=== PATIENT | male | born 1985 | race Caucasian/White ===

== ENCOUNTER 2016-05-21 23:45 | Emergency (ER) | payer OTHER ==
[~2016-05-21 23:45] MED LIST: DILAUDID8 MG PO; LITHIUM CARBON450 MG PO; METHADONE HCL10 MG PO; MS CONTIN30 MG PO; WELLBUTRIN SR100 MG PO; XANAX0.5 MG PO; ZOLOFT50 MG PO
--- NOTE | 2016-05-22 02:38 | ED ORDER SUMMARY ---
..... Patient: KENISHA VILLARREAL OrderSheet [facility] VisitID: [id number] [place] [address] 30y, M Registration Date/Time: 05/21/2016 ORDER SHEET Weight: 81.6 kg (stated) Allergies: No Known Drug Allergy GENERAL ORDERS: GC/Chlamydia, Urine (Urine, Clean Catch) (urine) Urgent (00:08 05/22/2016 Janet Gordillo) (Ack 0:09 HSoule) (0:33 AMcQuoid ER Tech1) UA-Culture if indicated Urgent (00:08 05/22/2016 Janet Gordillo) (Ack 0:09 HSoule) (0:33 AMcQuoid ER Tech1) US Scrotum/Testicular Urgent (02:08 05/22/2016 Janet Gordillo) (Ack 2:09 AMcQuoid ER Tech1) (2:39 HSoule) MEDICATION ORDERS: Ciprofloxacin PO 500 mg (NOW) (02:08 05/22/2016 Janet Gordillo) (Ack 2:13 HSoule) (2:18 HSoule) IV FLUIDS: ORDER SHEET NOTES: [Electronically signed by Loraine De La Cruz (03:32 05/22/2016)] [Electronically signed by Jose Manuel Dr. (04:35 05/24/2016)] [Electronically locked/signed by Loraine De La Cruz (03:32 05/22/2016)]
--- NOTE | 2016-05-22 02:38 | ED NURSING NOTES ---
Clinical Report - Nurses [facility] [address] [place] [address] 05/21/2016 23:48 Patient: KENISHA VILLARREAL TRIAGE Triage time 23:59 May 21 2016. Acuity: LEVEL 3. Chief Complaint: PAIN WITH URINATION and TESTICULAR PAIN. 00:03 05/22/16. SEPSIS SCREEN: Sepsis Screen: negative. Negative (no infection suspected/documented). --00:03 Loraine De La Cruz 23:59 05/21/16. BP: 159/104. HR: 81. RR: 20. O2 saturation: 96% on room air. Temp: 97.5 F (oral). Pain level now: 09/06. --00:03 Loraine De La Cruz. Weight: 81.6 kg stated. Height/Length: 74 inches Per Patient. BMI: 23.1. --00:00 Loraine De La Cruz. Medications None. --00:02 Loraine De La Cruz. Allergies No Known Drug Allergy. --00:02 Loraine De La Cruz. Medication/allergy information source: the patient. --00:03 Loraine De La Cruz. History Arrived by private vehicle. Historian: patient. Accompanied by friend. Onset. (1 months ago). ( Patient reports that he has been having testicle pain as well as maintaining an erection. Patient reports some new sexual partners. Patient also reports some pain with urination.). Treatment ELEMENTARY PRINCIPAL: None. PAST MEDICAL HX: Immunizations: status is unknown. SOCIAL HX: Light tobacco smoker (cigarette)- less than 1/2 a pack per day. Occasional alcohol use. History of IV drug use: heroin, methamphetamines. Recently used drugs today. No infectious disease exposure. ABUSE ASSESSMENT: No report of abuse. FALL RISK ASSESSMENT: Fall risk assessment completed. No fall risk identified. NUTRITIONAL RISK ASSESSMENT: The nutritional risk assessment revealed no deficiencies. FUNCTIONAL ASSESSMENT: Functional assessment: no impairments noted. LEARNING NEEDS ASSESSMENT: The learning needs assessment revealed no barriers. SKIN INTEGRITY ASSESSMENT: Skin integrity risk assessment completed. No skin integrity risk identified. --00:03 Loraine De La Cruz. PROBLEMS: Drug Poisoning. Suicide Attempt. Seizure. Abdominal Pain. Constipation. Nephrolithiasis. Chronic Back Pain. Depression. Muscle Strain, Upper Extremity. Immunizations. Fall. Abrasion(s). Contusion. Tetanus Status. Spontaneous pneumothorax. Anxiety Reaction. --00:03 Loraine De La Cruz. ADDITIONAL SURGERIES: Chest tube. --00:03 Loraine De La Cruz Facial reconstruction . --00:03 Loraine De La Cruz. Interventions ID band on patient. To treatment room. --00:03 Loraine De La Cruz. PHYSICAL ASSESSMENT 00:04 05/22/16. Ambulatory to room. GENERAL / NEURO / PSYCH: Alert. Oriented X 4. Appears in no acute distress. HEENT: Mucous membranes are pink. RESPIRATORY: Respirations not labored. CVS: Normal heart rate and rhythm. GI / : Abdomen soft and nontender. Right testicular tenderness. SKIN: Skin is warm and dry. --00:05 Loraine De La Cruz. NURSING PROGRESS NOTES 00:05 05/22/16. Pulse oximeter and NIBP monitor placed on patient. Patient gowned. Reassurance given to the patient. Two patient identifiers checked. Call light placed in reach. Side rails up x 1. Bed placed in lowest position. Brakes of bed on. Patient ready for evaluation- chart flagged and ED physician notified. --00:05 Loraine De La Cruz ( Patient made aware of the need for urine sample). --00:16 Loraine De La Crzu Patient ID band checked for patient name and birthdate: patient confirmed. Instructions provided to collect clean catch urine and patient verbalized understanding urine collected with return of yellow-colored clear urine; sample sent to lab for urinalysis and culture. Specimen labeled in the presence of the patient. --00:29 Loraine De La Cruz 01:58 05/22/16. BP: 127/75. HR: 87. RR: 20. O2 saturation: 98% on room air. --01:58 Loraine De La Cruz 02:18 05/22/2016 Ciprofloxacin (Ciprofloxacin) PO Tablets 500 mg given. Allergies verified and confirmed 5 rights. --02:18 Loraine De La Cruz. DISPOSITION / DISCHARGE 02:48 05/22/16. Condition at departure: stable. No learning barriers present. Discharge instructions provided and reviewed with the patient. Reviewed medication(s) side effects, precautions, dosing and course information. Prescription(s) given to the patient. Reviewed need for increased fluid intake. Patient verbalized understanding. Written instructions provided in [place]. ( Follow up with Urology in one week. Return if symptoms worsen. Take antibiotics as directed and for duration of prescribed course. Patient had no questions at this time and verbalized understanding of discharge instructions.). The patient was discharged by the physician. He was discharged home and accompanied by real estate leasing agent. He left the Emergency Department ambulatory and via private vehicle. Patient driving. --02:48 Loraine De La Cruz 02:44 05/22/16. BP: 127/70. HR: 89. RR: 20. O2 saturation: 98% on room air. Temp: 97.7 F (oral). Pain level now: 09/06. --02:48 Loraine De La Cruz. Locked/Released at 05/22/2016 3:32 by Loraine De La Cruz,
--- NOTE | 2016-05-22 02:38 | ED CLINICAL REPORT ---
Clinical Report - Physicians/Mid Levels [facility] [address] [place] [address] 05/21/2016 23:48 Patient: KENISHA VILLARREAL Time Seen: 0008; patient care assumed. Arrived- By private vehicle. Historian- patient. HISTORY OF PRESENT ILLNESS Chief Complaint: DYSURIA and RIGHT TESTICULAR PAIN. This started past several days and is still present (staying the same). The problem is described as moderate. It was gradual in onset and has been waxing/waning but is not gone now. No penile discharge or genital lesion. He has had testicular pain. The patient has not had an exposure to a sexually transmitted disease. Similar symptoms previously: None. Recent medical care: Not recently seen/assessed. REVIEW OF SYSTEMS No fever or chills. All systems otherwise negative, except as recorded above. PAST HISTORY See nurses notes. SOCIAL HISTORY Smoker- current status unknown. Alcohol use. History of drug use: methamphetamines. No recent travel. Is a local resident. ADDITIONAL NOTES The nursing notes have been reviewed. PHYSICAL EXAM Vital Signs: 05/21/2016 23:59 BP: 159/104. HR: 81. RR: 20. O2 saturation: 96%. Temp: 97.5 F. Pain level now: 7/10. Oxygen saturation normal. Appearance: Alert. Oriented X3. No acute distress. ENT: Normal external inspection. Pharynx normal. Neck: Neck supple. CVS: Heart sounds normal. Respiratory: No respiratory distress. Breath sounds normal. Abdomen: Soft and nontender. Bowel sounds normal. : (No [place] male genitalia. Circumcised. No discharge. The left testicle is not present or palpated even in the inguinal canal. Right testicle is normal in contour and size. No epididymal tenderness. No scrotal erythema or edema noted. No signs of foreign's gangrene. No bony other maladies. No hernia. No lymphadenopathy. No discharge or lesions). Skin: Skin warm and dry. No rash. Normal skin turgor. Extremities: Extremities exhibit normal ROM. No lower extremity edema. LABS, X-RAYS, AND EKG Scrotal Sonogram: Testis abnormal. Blood flow to right testis is normal. Blood flow to left testis is absent (small calcifications). Small right hydrocele. No mass. Indication for study: pain. The exam was performed by a vtc technician. The study was independently viewed by me and interpreted by the radiologist. The study was discussed with the radiologist (pacs). Laboratory Tests: UA-Culture if indicated: (ELEONORA: 05/22/2016 00:30) ( [facility] 05/22/2016 01:22) Final results Test Result Flag Units (Reference) URINE COLOR YELLOW URINE APPEARANCE SLIGHTLY HAZY URINE GLUCOSE NEGATIVE (NEGATIVE) URINE BILIRUBIN NEGATIVE (NEGATIVE) URINE KETONE NEGATIVE (NEGATIVE) URINE SPECIFIC GRAVITY 1.025 (1.010-1.030) URINE PH 6.5 (5.0-8.0) URINE PROTEIN NEGATIVE (NEGATIVE) URINE UROBILINOGEN 0.2 EU/dL (0.2-1.0) URINE NITRITE NEGATIVE (NEGATIVE) URINE BLOOD 2+ (NEGATIVE) URINE LEUK ESTERASE POSITIVE (NEGATIVE) URINE RBC 10-25 rbc/hpf (0-1) URINE WBC 10-15 wbc/hpf (0-1) URINE EPITHELIAL CELLS RARE EPI/hpf (0-5) URINE BACTERIA NONE SEEN (NONE SEEN) URINE COMMENT CULTURE INDICATED URINE CULTURES ARE SET-UP BASED ON THE FOLLOWING CRITERIA:POSITIVE NITRITEPOSITIVE LEUKOCYTE ESTERASEGREATER THAN 10 WHITE BLOOD CELLSMODERATE (2+) OR GREATER BACTERIA Culture, Urine: (ELEONORA: 05/22/2016 00:30) ( [facility] 05/23/2016 10:11) IP Test Result Flag Units (Reference) CULTURE, URINE DATE: 05/23/16 PRELIM REPORT: PRELIMINARY REPORT #1 VERY EARLY GROWTH: VERY EARLY GROWTH: CULTURE TOO YOUNG FOR WORKUP-REINCUBATED . PROGRESS AND PROCEDURES Course of Care: the patient is a pleasant 30-year-old male presenting for evaluation of dysuria. At this time differential diagnosis includes gonorrhea/chlamydial infection versus urinary tract infection. Also be considered epididymitis and orchitis secondary to patient's concern for testicular pain. Patient will be evaluated with ultrasound as well as urinalysis. Patient is agreeable to treatment plan. Patient's workup was alert we'll for urinary tract infection. Ultrasound demonstrates small calcifications noted in the patient's decibels. Because this, patient was at slightly increased risk for having testicular cancer in the future. Patient was informed of the findings here in the emergency departmentincluding ultrasound and urinalysis. At about accident provided. The patient is agreeable to the treatment plan. Discussed with patient his workup here in the emergency department as well as diagnosis, home care and follow-up and return precautions. All questions have been answered. The patient expressed understanding of these instructions and was agreeable to them. Disposition: Discharged. Condition: good. CLINICAL IMPRESSION Acute urinary tract infection. Right epididymitis (acute). INSTRUCTIONS Warnings: GENERAL WARNINGS: Return or contact your physician immediately if your condition worsens or changes unexpectedly, if not improving as expected, or if other problems arise. Specifically return if pain, vomiting, bleeding, breathing difficulty or fever. Your Current Medications: CONTINUE TAKING THE FOLLOWING MEDICATIONS: None*. Prescription Medications: Cipro 500 mg: take 1 tab orally every 12 hours for 10 days. No refills. Substitution is permissible. OTC Medications: Motrin (available over the counter): take according to label instructions. Follow-up: Return to the emergency department as needed. Follow up with your doctor in three days. Reason for referral: recheck today's concerns. Summary of care provided to patient via paper. Screening today revealed the patient's blood pressure to be in the normal range. The patient should follow up with a primary care provider for blood pressure management. Understanding of the discharge instructions verbalized by patient. Follow-up with: Librado Alex MD, Urology, , [address] [facility], [id number] Follow up in one week. Reason for referral: recheck today's concerns. Summary of care provided to patient via paper. (Electronically signed by Jose Manuel Dr. 05/24/2016 4:35)
--- NOTE | 2016-05-22 02:38 | ED NURSING NOTES ---
Clinical Report - Nurses [facility] [address] [place] [address] 05/21/2016 23:48 Patient: KENISHA VILLARREAL TRIAGE Triage time 23:59 May 21 2016. Acuity: LEVEL 3. Chief Complaint: PAIN WITH URINATION and TESTICULAR PAIN. 00:03 05/22/16. SEPSIS SCREEN: Sepsis Screen: negative. Negative (no infection suspected/documented). --00:03 Loraine De La Cruz 23:59 05/21/16. BP: 159/104. HR: 81. RR: 20. O2 saturation: 96% on room air. Temp: 97.5 F (oral). Pain level now: 09/06. --00:03 Loraine De La Cruz. Weight: 81.6 kg stated. Height/Length: 74 inches Per Patient. BMI: 23.1. --00:00 Loraine De La Cruz. Medications None. --00:02 Loraine De La Cruz. Allergies No Known Drug Allergy. --00:02 Loraine De La Cruz. Medication/allergy information source: the patient. --00:03 Loraine De La Cruz. History Arrived by private vehicle. Historian: patient. Accompanied by friend. Onset. (1 months ago). ( Patient reports that he has been having testicle pain as well as maintaining an erection. Patient reports some new sexual partners. Patient also reports some pain with urination.). Treatment MIMEOGRAPHER: None. PAST MEDICAL HX: Immunizations: status is unknown. SOCIAL HX: Light tobacco smoker (cigarette)- less than 1/2 a pack per day. Occasional alcohol use. History of IV drug use: heroin, methamphetamines. Recently used drugs today. No infectious disease exposure. ABUSE ASSESSMENT: No report of abuse. FALL RISK ASSESSMENT: Fall risk assessment completed. No fall risk identified. NUTRITIONAL RISK ASSESSMENT: The nutritional risk assessment revealed no deficiencies. FUNCTIONAL ASSESSMENT: Functional assessment: no impairments noted. LEARNING NEEDS ASSESSMENT: The learning needs assessment revealed no barriers. SKIN INTEGRITY ASSESSMENT: Skin integrity risk assessment completed. No skin integrity risk identified. --00:03 Loraine De La Cruz. PROBLEMS: Drug Poisoning. Suicide Attempt. Seizure. Abdominal Pain. Constipation. Nephrolithiasis. Chronic Back Pain. Depression. Muscle Strain, Upper Extremity. Immunizations. Fall. Abrasion(s). Contusion. Tetanus Status. Spontaneous pneumothorax. Anxiety Reaction. --00:03 Loraine De La Cruz. ADDITIONAL SURGERIES: Chest tube. --00:03 Loraine De La Cruz Facial reconstruction . --00:03 Loraine De La Cruz. Interventions ID band on patient. To treatment room. --00:03 Loraine De La Cruz. PHYSICAL ASSESSMENT 00:04 05/22/16. Ambulatory to room. GENERAL / NEURO / PSYCH: Alert. Oriented X 4. Appears in no acute distress. HEENT: Mucous membranes are pink. RESPIRATORY: Respirations not labored. CVS: Normal heart rate and rhythm. GI / : Abdomen soft and nontender. Right testicular tenderness. SKIN: Skin is warm and dry. --00:05 Loraine De La Cruz. NURSING PROGRESS NOTES 00:05 05/22/16. Pulse oximeter and NIBP monitor placed on patient. Patient gowned. Reassurance given to the patient. Two patient identifiers checked. Call light placed in reach. Side rails up x 1. Bed placed in lowest position. Brakes of bed on. Patient ready for evaluation- chart flagged and ED physician notified. --00:05 Loraine De La Cruz ( Patient made aware of the need for urine sample). --00:16 Loraine De La Cruz Patient ID band checked for patient name and birthdate: patient confirmed. Instructions provided to collect clean catch urine and patient verbalized understanding urine collected with return of yellow-colored clear urine; sample sent to lab for urinalysis and culture. Specimen labeled in the presence of the patient. --00:29 Loraine De La Cruz 01:58 05/22/16. BP: 127/75. HR: 87. RR: 20. O2 saturation: 98% on room air. --01:58 Loraine De La Cruz 02:18 05/22/2016 Ciprofloxacin (Ciprofloxacin) PO Tablets 500 mg given. Allergies verified and confirmed 5 rights. --02:18 Loraine De La Cruz. DISPOSITION / DISCHARGE 02:48 05/22/16. Condition at departure: stable. No learning barriers present. Discharge instructions provided and reviewed with the patient. Reviewed medication(s) side effects, precautions, dosing and course information. Prescription(s) given to the patient. Reviewed need for increased fluid intake. Patient verbalized understanding. Written instructions provided in Greek. ( Follow up with Urology in one week. Return if symptoms worsen. Take antibiotics as directed and for duration of prescribed course. Patient had no questions at this time and verbalized understanding of discharge instructions.). The patient was discharged by the physician. He was discharged home and accompanied by customer service advisor. He left the Emergency Department ambulatory and via private vehicle. Patient driving. --02:48 Loraine De La Cruz 02:44 05/22/16. BP: 127/70. HR: 89. RR: 20. O2 saturation: 98% on room air. Temp: 97.7 F (oral). Pain level now: 09/06. --02:48 Loraine De La Cruz. Locked/Released at 05/22/2016 3:32 by Loraine De La Cruz,
--- NOTE | 2016-05-22 02:38 | ED CLINICAL REPORT ---
Clinical Report - Physicians/Mid Levels [facility] [address] [place] [address] 05/21/2016 23:48 Patient: KENISHA VILLARREAL Time Seen: 0008; patient care assumed. Arrived- By private vehicle. Historian- patient. HISTORY OF PRESENT ILLNESS Chief Complaint: DYSURIA and RIGHT TESTICULAR PAIN. This started past several days and is still present (staying the same). The problem is described as moderate. It was gradual in onset and has been waxing/waning but is not gone now. No penile discharge or genital lesion. He has had testicular pain. The patient has not had an exposure to a sexually transmitted disease. Similar symptoms previously: None. Recent medical care: Not recently seen/assessed. REVIEW OF SYSTEMS No fever or chills. All systems otherwise negative, except as recorded above. PAST HISTORY See nurses notes. SOCIAL HISTORY Smoker- current status unknown. Alcohol use. History of drug use: methamphetamines. No recent travel. Is a local resident. ADDITIONAL NOTES The nursing notes have been reviewed. PHYSICAL EXAM Vital Signs: 05/21/2016 23:59 BP: 159/104. HR: 81. RR: 20. O2 saturation: 96%. Temp: 97.5 F. Pain level now: 7/10. Oxygen saturation normal. Appearance: Alert. Oriented X3. No acute distress. ENT: Normal external inspection. Pharynx normal. Neck: Neck supple. CVS: Heart sounds normal. Respiratory: No respiratory distress. Breath sounds normal. Abdomen: Soft and nontender. Bowel sounds normal. : (No [place] male genitalia. Circumcised. No discharge. The left testicle is not present or palpated even in the inguinal canal. Right testicle is normal in contour and size. No epididymal tenderness. No scrotal erythema or edema noted. No signs of foreign's gangrene. No bony other maladies. No hernia. No lymphadenopathy. No discharge or lesions). Skin: Skin warm and dry. No rash. Normal skin turgor. Extremities: Extremities exhibit normal ROM. No lower extremity edema. LABS, X-RAYS, AND EKG Scrotal Sonogram: Testis abnormal. Blood flow to right testis is normal. Blood flow to left testis is absent (small calcifications). Small right hydrocele. No mass. Indication for study: pain. The exam was performed by a page technician. The study was independently viewed by me and interpreted by the radiologist. The study was discussed with the radiologist (pacs). Laboratory Tests: UA-Culture if indicated: (ELEONORA: 05/22/2016 00:30) ( [facility] 05/22/2016 01:22) Final results Test Result Flag Units (Reference) URINE COLOR YELLOW URINE APPEARANCE SLIGHTLY HAZY URINE GLUCOSE NEGATIVE (NEGATIVE) URINE BILIRUBIN NEGATIVE (NEGATIVE) URINE KETONE NEGATIVE (NEGATIVE) URINE SPECIFIC GRAVITY 1.025 (1.010-1.030) URINE PH 6.5 (5.0-8.0) URINE PROTEIN NEGATIVE (NEGATIVE) URINE UROBILINOGEN 0.2 EU/dL (0.2-1.0) URINE NITRITE NEGATIVE (NEGATIVE) URINE BLOOD 2+ (NEGATIVE) URINE LEUK ESTERASE POSITIVE (NEGATIVE) URINE RBC 10-25 rbc/hpf (0-1) URINE WBC 10-15 wbc/hpf (0-1) URINE EPITHELIAL CELLS RARE EPI/hpf (0-5) URINE BACTERIA NONE SEEN (NONE SEEN) URINE COMMENT CULTURE INDICATED URINE CULTURES ARE SET-UP BASED ON THE FOLLOWING CRITERIA:POSITIVE NITRITEPOSITIVE LEUKOCYTE ESTERASEGREATER THAN 10 WHITE BLOOD CELLSMODERATE (2+) OR GREATER BACTERIA Culture, Urine: (ELEONORA: 05/22/2016 00:30) ( [facility] 05/23/2016 10:11) IP Test Result Flag Units (Reference) CULTURE, URINE DATE: 05/23/16 PRELIM REPORT: PRELIMINARY REPORT #1 VERY EARLY GROWTH: VERY EARLY GROWTH: CULTURE TOO YOUNG FOR WORKUP-REINCUBATED . PROGRESS AND PROCEDURES Course of Care: the patient is a pleasant 30-year-old male presenting for evaluation of dysuria. At this time differential diagnosis includes gonorrhea/chlamydial infection versus urinary tract infection. Also be considered epididymitis and orchitis secondary to patient's concern for testicular pain. Patient will be evaluated with ultrasound as well as urinalysis. Patient is agreeable to treatment plan. Patient's workup was alert we'll for urinary tract infection. Ultrasound demonstrates small calcifications noted in the patient's decibels. Because this, patient was at slightly increased risk for having testicular cancer in the future. Patient was informed of the findings here in the emergency departmentincluding ultrasound and urinalysis. At about accident provided. The patient is agreeable to the treatment plan. Discussed with patient his workup here in the emergency department as well as diagnosis, home care and follow-up and return precautions. All questions have been answered. The patient expressed understanding of these instructions and was agreeable to them. Disposition: Discharged. Condition: good. CLINICAL IMPRESSION Acute urinary tract infection. Right epididymitis (acute). INSTRUCTIONS Warnings: GENERAL WARNINGS: Return or contact your physician immediately if your condition worsens or changes unexpectedly, if not improving as expected, or if other problems arise. Specifically return if pain, vomiting, bleeding, breathing difficulty or fever. Your Current Medications: CONTINUE TAKING THE FOLLOWING MEDICATIONS: None*. Prescription Medications: Cipro 500 mg: take 1 tab orally every 12 hours for 10 days. No refills. Substitution is permissible. OTC Medications: Motrin (available over the counter): take according to label instructions. Follow-up: Return to the emergency department as needed. Follow up with your doctor in three days. Reason for referral: recheck today's concerns. Summary of care provided to patient via paper. Screening today revealed the patient's blood pressure to be in the normal range. The patient should follow up with a primary care provider for blood pressure management. Understanding of the discharge instructions verbalized by patient. Follow-up with: Librado Alex MD, Urology, , [address] [facility], [id number] Follow up in one week. Reason for referral: recheck today's concerns. Summary of care provided to patient via paper. (Electronically signed by Jose Manuel Dr. 05/24/2016 4:35)
--- NOTE | 2016-05-22 02:38 | ED ORDER SUMMARY ---
..... Patient: KENISHA VILLARREAL OrderSheet [facility] VisitID: [id number] [place] [address] 30y, M Registration Date/Time: 05/21/2016 ORDER SHEET Weight: 81.6 kg (stated) Allergies: No Known Drug Allergy GENERAL ORDERS: GC/Chlamydia, Urine (Urine, Clean Catch) (urine) Urgent (00:08 05/22/2016 Janet Gordillo) (Ack 0:09 HSoule) (0:33 AMcQuoid ER Tech1) UA-Culture if indicated Urgent (00:08 05/22/2016 Janet Gordillo) (Ack 0:09 HSoule) (0:33 AMcQuoid ER Tech1) US Scrotum/Testicular Urgent (02:08 05/22/2016 Janet Gordillo) (Ack 2:09 AMcQuoid ER Tech1) (2:39 HSoule) MEDICATION ORDERS: Ciprofloxacin PO 500 mg (NOW) (02:08 05/22/2016 Janet Gordillo) (Ack 2:13 HSoule) (2:18 HSoule) IV FLUIDS: ORDER SHEET NOTES: [Electronically signed by Loraine De La Cruz (03:32 05/22/2016)] [Electronically signed by Jose Manuel Dr. (04:35 05/24/2016)] [Electronically locked/signed by Loraine De La Cruz (03:32 05/22/2016)]
--- NOTE | 2016-05-22 04:56 | DIAGNOSTIC IMAGING REPORT ---
PROCEDURE: US SCROTUM/TESTICLE INDICATION: Scrotal/testicular pain. 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 TECHNIQUE: Ayoub scale and color Doppler sonographic images through the scrotum were obtained. COMPARISON: Compared to CT abdomen pelvis on 05/21/2013. FINDINGS: RIGHT TESTICLE: Testicle is of normal size (5.1 x 2.4 x 3.8 cm) with normal vascularity. There are small microcalcifications of the right testicle. Right epididymis is normal (1.3 x 0.8 x 0.9 cm). Small right hydrocele. LEFT TESTICLE: Absent. IMPRESSION: 1. Small right hydrocele. 2. Small microcalcifications of the right testicle. This can be associated with testicular carcinoma. Follow-up scrotal/testicular ultrasound in 1 year is recommended. 3. Findings discussed with Dr. Jose Manuel.
--- NOTE | 2016-05-24 04:35 | ED DISCHARGE INSTRUCTIONS ---
Patient: KENISHA VILLARREAL General Instructions [facility] VisitID: [id number] [place] [address] 30y, M Registration Date/Time: 05/21/2016 Acute urinary tract infection. Right epididymitis (acute). INSTRUCTIONS Warnings: GENERAL WARNINGS: Return or contact your physician immediately if your condition worsens or changes unexpectedly, if not improving as expected, or if other problems arise. Specifically return if pain, vomiting, bleeding, breathing difficulty or fever. Your Current Medications: CONTINUE TAKING THE FOLLOWING MEDICATIONS: None*. Prescription Medications: Cipro 500 mg: take 1 tab orally every 12 hours for 10 days. No refills. Substitution is permissible. OTC Medications: Motrin (available over the counter): take according to label instructions. Follow-up: Return to the emergency department as needed. Follow up with your doctor in three days. Reason for referral: recheck today's concerns. Summary of care provided to patient via paper. Screening today revealed the patient's blood pressure to be in the normal range. The patient should follow up with a primary care provider for blood pressure management. Understanding of the discharge instructions verbalized by patient. Follow-up with: Librado Alex MD, Urology, , [address] [facility] [id number] Follow up in one week. Reason for referral: recheck today's concerns. Summary of care provided to patient via paper. ADDITIONAL INFORMATION Bladder Infection,Male (Adult) A bladder infection ("cystitis" or "UTI") usually causes a constant urge to urinate, and a burning when passing urine. Urine may be cloudy, smelly or dark. There may be also be pain in the lower abdomen. Cystitis in males is not common. It may be caused by a partial blockage in the urinary system that keeps the bladder from emptying completely. This is most often related to an enlarged prostate gland. Home Care: Drink lots of fluids (at least 6-8 glasses a day). This will flush the bacteria out of your bladder. Avoid sexual intercourse until your symptoms are gone. Avoid caffeine, alcohol, and spicy foods. They could irritate the bladder. A bladder infection is treated with antibiotics. You may also be given Pyridium (generic - phenazopyridine) to reduce burning with urination. This will cause urine to become a bright orange color, which can stain clothing. Follow Up with your doctor or this facility if ALL symptoms have not cleared within five days. It is important to keep your follow up appointment to discuss with your doctor the need for further tests of the urinary tract. Get Prompt Medical Attention if any of the following occur: Fever of 100.4F (38C) or higher, or as directed by your healthcare provider No improvement by the third day of treatment Increasing back or abdominal pain Repeated vomiting; unable to keep medicine down Weakness, dizziness or fainting Epididymitis The pain and swelling in your scrotum are due to an inflammation of the epididymis. This is a small sac next to the testicle that stores sperm. It is usually due to an infection. In sexually active men, it is often due to a sexually transmitted disease (STD) such as Chlamydia or Gonorrhea. In boys and older men who are not sexually active, it is due to bacteria from the bladder or prostate gland (not an STD infection). Symptoms may begin with lower abdominal or low back pain and spreads down into the scrotum. Usually only one side is affected. The testicle and scrotum swell and become very painful. There may be fever and burning when passing urine. Sometimes there is a discharge from the penis. Treatment is with antibiotics, anti-inflammatory and pain medicines. There should be improvement over the first few days of treatment, but it will take several weeks for all the swelling and discomfort to go away. If an STD is suspected as a cause, sexual partners must also be treated. Home Care: 1) Support the scrotum. When lying down, place a rolled towel under the scrotum. When walking, use an athletic supporter or two pairs of Jockey-style underwear. 2) To relieve pain, apply ice packs to the inflamed area (ice cubes in a plastic bag wrapped in a towel). 3) You may use acetaminophen (Tylenol) or ibuprofen (Motrin, Advil) to control pain, unless another medicine was prescribed. [ NOTE : If you have chronic liver or kidney disease or ever had a stomach ulcer or GI bleeding, talk with your doctor before using these medicines.] 4) Rest in bed until the fever, pain and swelling decrease. It may take several weeks for all of the swelling to go away. Avoid coffee, tea, carbonated beverages and alcohol, which could worsen your symptoms. 5) Avoid constipation (which causes straining and therefore increased pain) by eating natural laxatives such as prunes, fresh fruits and whole-grain cereals. If necessary, use a mild fsrm-pgl-ghdyvit laxative (Milk of Magnesia) for constipation. Mineral oil can be used to keep the stools soft. 6) Do not have sex until you have finished all treatment and all symptoms have cleared. 7) Take all medicine as directed. Do not miss any doses and do not stop early even if you feel better. Follow Up with your doctor, a urologist, or as advised by our staff to be sure you are responding properly to treatment. If a culture was taken, you may call for the result in 2-3 days. A culture test can ensure that you are on the correct antibiotic. Get Prompt Medical Attention if any of the following occur: -- Fever over 100.4 F (38.0 C) after three days of treatment -- Increasing pain or swelling of the testicle after starting treatment -- Increasing pressure or pain in your bladder -- Unable to pass urine for eight hours Ciprofloxacin Hydrochloride Oral tablet What is this medicine? CIPROFLOXACIN (sip milena FLOX a sin) is a quinolone antibiotic. It is used to treat certain kinds of bacterial infections. It will not work for colds, flu, or other viral infections. How should I use this medicine? Take this medicine by mouth with a glass of water. Follow the directions on the prescription label. Take your medicine at regular intervals. Do not take your medicine more often than directed. Take all of your medicine as directed even if you think your are better. Do not skip doses or stop your medicine early. You can take this medicine with food or on an empty stomach. It can be taken with a meal that contains dairy or calcium, but do not take it alone with a dairy product, like milk or yogurt or calcium-fortified juice. A special MedGuide will be given to you by the pharmacist with each prescription and refill. Be sure to read this information carefully each time. Talk to your leasing coordinator regarding the use of this medicine in children. Special care may be needed. What side effects may I notice from receiving this medicine? Side effects that you should report to your doctor or health chronic care nurse as soon as possible: - allergic reactions like skin rash, itching or hives, swelling of the face, lips, or tongue - breathing problems - confusion, nightmares or hallucinations - feeling faint or lightheaded, falls - irregular heartbeat - joint, muscle or tendon pain or swelling - pain or trouble passing urine -persistent headache with or without blurred vision - redness, blistering, peeling or loosening of the skin, including inside the mouth - seizure - unusual pain, numbness, tingling, or weakness Side effects that usually do not require medical attention (report to your doctor or health chronic care nurse if they continue or are bothersome): - diarrhea - nausea or stomach upset - white patches or sores in the mouth What may interact with this medicine? Do not take this medicine with any of the following medications: cisapride droperidol terfenadine tizanidine This medicine may also interact with the following medications: antacids caffeine cyclosporin didanosine (ddI) buffered tablets or powder medicines for diabetes medicines for inflammation like ibuprofen, naproxen methotrexate multivitamins omeprazole phenytoin probenecid sucralfate theophylline warfarin What if I miss a dose? If you miss a dose, take it as soon as you can. If it is almost time for your next dose, take only that dose. Do not take double or extra doses. Where should I keep my medicine? Keep out of the reach of children. Store at room temperature below 30 degrees C (86 degrees F). Keep container tightly closed. Throw away any unused medicine after the expiration date. What should I tell my health care provider before I take this medicine? They need to know if you have any of these conditions: -bone problems -cerebral disease -joint problems -irregular heartbeat -kidney disease -liver disease -myasthenia gravis -seizure disorder -tendon problems -an unusual or allergic reaction to ciprofloxacin, other antibiotics or medicines, foods, dyes, or preservatives - or trying to get -breast-feeding What should I watch for while using this medicine? Tell your doctor or health chronic care nurse if your symptoms do not improve. Do not treat diarrhea with over the counter products. Contact your doctor if you have diarrhea that lasts more than 2 days or if it is severe and watery. You may get drowsy or dizzy. Do not drive, use machinery, or do anything that needs mental alertness until you know how this medicine affects you. Do not stand or sit up quickly, especially if you are an older patient. This reduces the risk of dizzy or fainting spells. This medicine can make you more sensitive to the sun. Keep out of the sun. If you cannot avoid being in the sun, wear protective clothing and use sunscreen. Do not use sun lamps or tanning beds/booths. Avoid antacids, aluminum, calcium, iron, magnesium, and zinc products for 6 hours before and 2 hours after taking a dose of this medicine. You have been given the following additional information: Bladder Infection, Male (Adult) Epididymitis Ciprofloxacin Hydrochloride Oral tablet (Electronically signed by Jose Manuel Dr. 05/24/2016 4:35)
--- NOTE | 2016-05-24 04:35 | ED MAR SUMMARY ---
..... Medication Administration Record [facility] [address] [place] [address] Patient: KENISHA VILLARREAL Visit ID: [id number] 30y, M Weight: 81.6 kg Height/Length: 74 in BMI: 23.1 ALLERGIES: No Known Drug Allergy Given 02:18 05/22/2016 Loraine De La Cruz, Medication Administered: CIPROFLOXACIN [PO] (CIPROFLOXACIN), Dose: 500 mg Tablets PO. Medication Ordered: Ciprofloxacin PO 500 mg (NOW).
--- NOTE | 2016-05-24 04:35 | ED MED RECONCILIATION SUMMARY ---
Patient: KENISHA VILLARREAL Medication Reconciliation Report [facility] VisitID: [id number] [place] [address] 30y, M Registration Date/Time: 05/21/2016 Weight: 81.6 kg Height/Length: 74 in. BMI: 23.1 ALLERGIES: No Known Drug Allergy The patient's Home Medications are listed below: NONE. The source(s) of the original Home Medication information: patient The following Medications were given to the patient in the Emergency Department: Ciprofloxacin [PO] PO 500 mg, administered: 05/22/2016 2:18:00 AM The following Medications were prescribed to the patient: Motrin (available over the counter): take according to label instructions. -- Jose Manuel Dr. Cipro 500 mg: take 1 tab orally every 12 hours for 10 days. No refills. Substitution is permissible. -- Jose Manuel Dr.
--- NOTE | 2016-05-24 04:35 | ED MAR SUMMARY ---
..... Medication Administration Record [facility] [address] [place] [address] Patient: KENISHA VILLARREAL Visit ID: [id number] 30y, M Weight: 81.6 kg Height/Length: 74 in BMI: 23.1 ALLERGIES: No Known Drug Allergy Given 02:18 05/22/2016 Loraine De La Cruz, Medication Administered: CIPROFLOXACIN [PO] (CIPROFLOXACIN), Dose: 500 mg Tablets PO. Medication Ordered: Ciprofloxacin PO 500 mg (NOW).
--- NOTE | 2016-05-24 04:35 | ED MED RECONCILIATION SUMMARY ---
Patient: KENISHA VILLARREAL Medication Reconciliation Report [facility] VisitID: [id number] [place] [address] 30y, M Registration Date/Time: 05/21/2016 Weight: 81.6 kg Height/Length: 74 in. BMI: 23.1 ALLERGIES: No Known Drug Allergy The patient's Home Medications are listed below: NONE. The source(s) of the original Home Medication information: patient The following Medications were given to the patient in the Emergency Department: Ciprofloxacin [PO] PO 500 mg, administered: 05/22/2016 2:18:00 AM The following Medications were prescribed to the patient: Motrin (available over the counter): take according to label instructions. -- Jose Manuel Dr. Cipro 500 mg: take 1 tab orally every 12 hours for 10 days. No refills. Substitution is permissible. -- Jose Manuel Dr.
== END 2016-05-22 02:48 | disposition home or self-care (01) ==
LOC: ED SRH 23:45
DX: N39.0 Urinary tract infection, site not specified (principal); A56.19 Other chlamydial genitourinary infection
CPT/HCPCS: 90004; 90469; 91227; 91228